=== PATIENT | female | born 1960 | race Caucasian/White ===

== ENCOUNTER 2018-01-14 10:56 | Emergency (ER) | payer OTHER ==
[2018-01-14 12:20] VITALS: BP 177/95
--- NOTE | 2018-01-14 12:52 | UC ---
Abdominal Pain Female HPI - HPI Summary HPI Summary: Yonatan diffuse lower abd discomfort and bloating. She has had constipation for 2-3 days. She also has had urine dysuria for two days as well. She has diffuse lower back pressure as well. No fever or vomiting. SHe has had c sections and appendectomy. SHe has a hx of mild constipation in the past. She has had two colonoscopies. - History of Current Complaint Chief Complaint: UCGI Stated Complaint: LOWER ABD/BACK PAIN Time Seen by Provider: 01/14/18 12:32 Hx Obtained From: Patient Hx Last Menstrual Period: n/a Onset/Duration: Gradual Onset, Lasting Days - constipation and dysuria has been days but the lower abd discomfort has been slowly worsening over the past month. Timing: Constant Severity Initially: Mild Severity Currently: Moderate Pain Intensity: 7 Location: Diffuse Radiates: No Character: Aching, Cramping Aggravating Factor(s): Other: - sitting. Alleviating Factor(s): Nothing Associated Signs and Symptoms: Positive: Constipation, Urinary Symptoms. Negative: Fever, Cough, Chest Pain, Dizzy, Blood in Stool, Decreased Appetite, Vaginal Bleeding, Vaginal Discharge, Nausea, Vomiting, Diarrhea Allergies/Adverse Reactions: Allergies Allergy/AdvReac Type Severity Reaction Status Date / Time No Known Allergies Allergy Verified 05/22/16 08:37 Home Medications: Home Medications Cholecalciferol TAB* [Vitamin D TAB*] 1,000 unit PO DAILY 01/14/18 [History Confirmed 01/14/18] Levothyroxine Sodium 25 mcg PO 01/14/18 [History] Naproxen Sodium [Aleve] 440 mg PO 01/14/18 [History] PMH/Surg Hx/FS Hx/Imm Hx Previously Healthy: No - constipation. - Surgical History Surgical History: Yes Surgery Procedure, Year, and Place: 2 , appy - Family History Known Family History: Positive: None - Social History Occupation: Employed Full-time Alcohol Use: Weekly Substance Use Type: None Smoking Status (MU): Heavy Every Day Tobacco Smoker Type: Cigarettes Amount Used/How Often: 1 PPD Length of Time of Smoking/Using Tobacco: 30 YRS Have You Smoked in the Last Year: Yes Household Exposure Type: Cigarettes Review of Systems Gastrointestinal: Abdominal Pain Genitourinary: Dysuria All Other Systems Reviewed And Are Negative: Yes Physical Exam Triage Information Reviewed: Yes Appearance: Well-Appearing, No Pain Distress, Well-Nourished Vital Signs: Initial Vital Signs Temp 97.2 F 01/14/18 12:07 Pulse 63 01/14/18 12:07 Resp 18 01/14/18 12:07 BP 177/95 01/14/18 12:07 Pulse Ox 99 01/14/18 12:07 Vital Signs Reviewed: Yes Eyes: Positive: Conjunctiva Clear ENT: Positive: Pharynx normal, TMs normal, Uvula midline Neck: Positive: Supple, Nontender, No Lymphadenopathy Respiratory: Positive: Lungs clear, Normal breath sounds, No respiratory distress, No accessory muscle use. Negative: Respiratory distress, Decreased breath sounds, Accessory muscle use, Crackles, Rhonchi, Stridor Cardiovascular: Positive: No Murmur, Pulses Normal, Brisk Capillary Refill Abdominal Exam: Other - diffuse lower abd discomfort with palpation but soft and no guarding or rebound. Abdomen Description: Positive: No Organomegaly, Soft. Negative: CVA Tenderness (R), CVA Tenderness (L), Distended, Guarding Musculoskeletal: Positive: Strength Intact, ROM Intact, No Edema Neurological: Positive: Alert, Muscle Tone Normal. Negative: Fatigued Psychological: Positive: Age Appropriate Behavior Skin: Negative: rashes Abd Pain Female Course/Dx - Course Course Of Treatment: This has been slowly progressing over a month. She has hx of mild constipation in the past as well. Exam and vitals are benign. She has no vaginal symptoms and she is monogamous. She agrees to go to ED for any worsening symptoms. - Differential Dx/Diagnosis Provider Diagnoses: constipation. uti. Discharge - Discharge Plan Condition: Good Disposition: HOME Prescriptions: Lactulose* 30 ml PO BID PRN #[id number] [id number] PRN Reason: Constipation Sulfamethox/Trimethoprim DS* [Bactrim DS 800/160 TAB*] 1 tab PO BID #14 tab Patient Education Materials: Urinary Tract Infection in Women (ED), Constipation (ED) Forms: *Work Release Referrals: Non Staff,Doctor [Primary Care Provider] -
== END 2018-01-14 12:55 | disposition home or self-care (01) ==
LOC: UCCORT 10:56
DX: K59.00 Constipation, unspecified (principal); N39.0 Urinary tract infection, site not specified; F17.210 Nicotine dependence, cigarettes, uncomplicated
CPT/HCPCS: 81003; 99212; G0463